=== PATIENT | male | born 1945 | race Caucasian/White ===

== ENCOUNTER 2020-01-20 17:39 | Emergency (ER) | payer MEDICARE, OTHER ==
[~2020-01-20] VITALS: Ht 182.9 cm; Wt 79.5 kg
[2020-01-20] MEDS ORDERED: normal saline 1000ML IV soln IVB ONE (18:00)
[2020-01-20 18:14] LABS: BASOPHILS # (AUTO) 0.1 X10'3 (0-0.2); BASOPHILS % (AUTO) 0.6 % (0-1); EOSINOPHILS # (AUTO) 0.3 X10'3 (0-0.9); EOSINOPHILS % (AUTO) 3.2 % (0-6); HEMATOCRIT 39.9 % (42.0-52.0); HEMOGLOBIN 13.4 g/dl (14.0-17.9); LYMPHOCYTES # (AUTO) 1.9 X10'3 (1.1-4.8); MEAN CORPUSCULAR HEMOGLOBIN 31.3 PG (27.0-31.0); MEAN CORPUSCULAR HGB CONC 33.5 g/dL (33.0-36.5); MEAN CORPUSCULAR VOLUME 93.3 FL (78-98); MEAN PLATELET VOLUME 9.6 FL (7.4-10.4); MONOCYTES # (AUTO) 1.1 X10'3 (0-0.9); MONOCYTES % (AUTO) 10.1 % (2-12); NEUTROPHILS # (AUTO) 7.3 X10'3 (1.8-7.7); NEUTROPHILS % (AUTO) 68.1 % (42-75); PLATELET COUNT 185 X10'3 (140-440); RED BLOOD COUNT 4.27 X10'6 (4.70-6.10); WHITE BLOOD COUNT 10.8 X10'3 (4.5-11.0)
[2020-01-20 18:50] LABS: ALANINE AMINOTRANSFERASE 23 U/L (12-78); ALBUMIN 3.9 G/DL (3.4-5.0); ALKALINE PHOSPHATASE 98 IU/L (46-116); ANION GAP 6 (8-16); ASPARTATE AMINO TRANSFERASE 24 U/L (10-37); BILIRUBIN,TOTAL 0.5 MG/DL (0.1-1.0); BLOOD UREA NITROGEN 25 MG/DL (7-18); BUN/CREATININE RATIO 20.2 (5.4-32.0); CALCIUM 9.5 MG/DL (8.5-10.1); CHLORIDE 106 MMOL/L (99-107); CREATININE 1.24 MG/DL (0.60-1.10); GLUCOSE 110 MG/DL (70-104); POTASSIUM 3.8 MMOL/L (3.5-5.1); SODIUM 142 MMOL/L (135-145); TOTAL CARBON DIOXIDE 29.9 MMOL/L (24-32); TOTAL PROTEIN 7.7 G/DL (6.4-8.2); eGFR 57 ML/MIN
[2020-01-20] MEDS ORDERED: HYDROcodone/acetaminophen 10/325mg tab PO ONE (19:00)
--- NOTE | 2020-01-20 19:26 | NUR ---
Interigated pace maker, talk to Michael from pacemaker [employer], reported pacemaker WNL no abnormal events, recomends follow up with Dr. Harris. Michael's phone number. [phone]
--- NOTE | 2020-01-20 19:53 | NUR ---
relieving RN for break, pt amb with steady gait, without assist from rm 6 to restroom, no c/o dizziness/lightheadedness
--- NOTE | 2020-01-20 19:55 | NUR ---
pt has ride home with friend
[2020-01-20 20:15] VITALS: BP 141/72
== END 2020-01-20 20:17 | disposition home or self-care (01) ==
LOC: ER 17:39
DX: R55 Syncope and collapse (principal); E78.00 Pure hypercholesterolemia, unspecified; I10 Essential (primary) hypertension; Z98.890 Other specified postprocedural states; Z86.73 Personal history of transient ischemic attack (TIA), and cerebral infarction without residual deficits; Z60.2 Problems related to living alone; Z88.5 Allergy status to narcotic agent; Z88.8 Allergy status to other drugs, medicaments and biological substances
CPT/HCPCS: 36415; 71045; 80053; 83880; 84484; 85025; 85610; 93005; 96360; 99285; J7030

== ENCOUNTER 2022-03-07 11:18 | Emergency (ER) | payer MEDICARE, OTHER ==
[~2022-03-07] VITALS: Ht 185.4 cm; Wt 64.1 kg
[2022-03-07] MEDS ORDERED: normal saline 1000ML IV soln IVB ONE (11:50)
[2022-03-07] MEDS ORDERED: ondansetron/PF 4mg/2ml inj IV ONE (11:50)
[2022-03-07] MEDS ORDERED: famotidine/PF 10 mg/ml inj IV ONE (12:10)
[2022-03-07] MEDS ORDERED: morphine 4 MG/ML inj SYRINge IV ONE (12:15)
[2022-03-07 12:18] LABS: CLARITY,URINE CLEAR (Clear); COLOR,URINE YELLOW (Yellow); GLUCOSE, URINE NEGATIVE (Neg); KETONES,URINE 15 mg/dl (Neg); LEUKOCYTE ESTERASE ,URINE NEGATIVE (Neg); NITRITES, URINE NEGATIVE (Neg); OCCULT BLOOD,URINE NEGATIVE (Neg); PROTEIN,URINE 100 mg/dl (Neg)
[2022-03-07] MEDS ORDERED: LORazepam 2 mg/ml vial IV ONE (12:20)
[2022-03-07 12:21] LABS: BASOPHILS % (AUTO) 0.5 % (0-1); EOSINOPHILS # (AUTO) 0.1 X10'3 (0-0.9); EOSINOPHILS % (AUTO) 2.1 % (0-6); HEMATOCRIT 43.5 % (42.0-52.0); HEMOGLOBIN 14.7 g/dl (14.0-17.9); LYMPHOCYTES # (AUTO) 0.7 X10'3 (1.1-4.8); LYMPHOCYTES % (AUTO) 13.7 % (21-51); MEAN CORPUSCULAR HEMOGLOBIN 31.1 PG (27.0-31.0); MEAN CORPUSCULAR HGB CONC 33.8 g/dL (33.0-36.5); MEAN CORPUSCULAR VOLUME 92.2 FL (78-98); MEAN PLATELET VOLUME 8.9 FL (7.4-10.4); MONOCYTES # (AUTO) 0.4 X10'3 (0-0.9); MONOCYTES % (AUTO) 8.9 % (2-12); NEUTROPHILS # (AUTO) 3.7 X10'3 (1.8-7.7); NEUTROPHILS % (AUTO) 74.8 % (42-75); PLATELET COUNT 217 X10'3 (140-440); RED BLOOD COUNT 4.71 X10'6 (4.70-6.10); RED CELL DISTRIBUTION WIDTH 14.7 % (11.5-14.5); WHITE BLOOD COUNT 4.9 X10'3 (4.5-11.0)
[2022-03-07 12:21] LABS: UA COLLECTION TYPE CLN CATCH MIDSTREAM
[2022-03-07 12:24] LABS: BACTERIA,URINE FEW /HPF (Neg); HYALINE CASTS 0-3 /LPF (NEGATIVE); MUCUS STRANDS FEW /LPF (Neg); RBC,URINE 0-2 /HPF (0-2); SQUAMOUS EPITHELIAL CELL,UR FEW /LPF (FEW); WBC,URINE 0-4 /HPF (0-4)
[2022-03-07 12:31] LABS: ALANINE AMINOTRANSFERASE 19 U/L (12-78); ALBUMIN 3.5 G/DL (3.4-5.0); ALKALINE PHOSPHATASE 84 IU/L (46-116); ANION GAP 9 (8-16); ASPARTATE AMINO TRANSFERASE 22 U/L (10-37); BLOOD UREA NITROGEN 11 MG/DL (7-18); BUN/CREATININE RATIO 10.2 (5.4-32.0); CALCIUM 9.2 MG/DL (8.5-10.1); CHLORIDE 104 MMOL/L (99-107); CREATININE 1.08 MG/DL (0.60-1.10); GLUCOSE 119 MG/DL (70-104); LIPASE < 50 U/L (73-393); POTASSIUM 4.4 MMOL/L (3.5-5.1); SODIUM 141 MMOL/L (135-145); TOTAL CARBON DIOXIDE 27.6 MMOL/L (24-32); TOTAL PROTEIN 7.1 G/DL (6.4-8.2); eGFR 66 ML/MIN
[2022-03-07] MEDS ORDERED: lactulose 20gm/30ml cup PO ONE (14:10)
[2022-03-07] MEDS ORDERED: methylnaltrexone br 12mg/0.6ml inj***SubQ only SQ ONE (14:10)
[2022-03-07 15:03] VITALS: BP 152/70
== END 2022-03-07 15:07 | disposition home or self-care (01) ==
LOC: ER 11:18
DX: K59.03 Drug induced constipation (principal); T40.605A Adverse effect of unspecified narcotics, initial encounter; N28.1 Cyst of kidney, acquired; R10.84 Generalized abdominal pain; R11.2 Nausea with vomiting, unspecified; R53.83 Other fatigue; E78.00 Pure hypercholesterolemia, unspecified; I10 Essential (primary) hypertension; F17.200 Nicotine dependence, unspecified, uncomplicated; Z87.442 Personal history of urinary calculi; Z86.73 Personal history of transient ischemic attack (TIA), and cerebral infarction without residual deficits; Z85.9 Personal history of malignant neoplasm, unspecified; Z98.890 Other specified postprocedural states; Z60.2 Problems related to living alone; Z88.5 Allergy status to narcotic agent; Z88.8 Allergy status to other drugs, medicaments and biological substances; Y92.89 Other specified places as the place of occurrence of the external cause
CPT/HCPCS: 36415; 71045; 74176; 80053; 81001; 83690; 85025; 96361; 96372; 96374; 96375; 99285; J2060; J2212; J2270; J2405; J3490; J7030

== ENCOUNTER 2022-03-15 18:22 | Inpatient (IN) | payer MEDICARE, OTHER ==
[~2022-03-15] VITALS: Ht 182.9 cm; Wt 62.7 kg
[2022-03-15 19:34] LABS: ALANINE AMINOTRANSFERASE 19 U/L (12-78); ALBUMIN 3.3 G/DL (3.4-5.0); ALBUMIN/GLOBULIN RATIO 0.8 (1.1-1.5); ALKALINE PHOSPHATASE 79 IU/L (46-116); ANION GAP 12 (8-16); ASPARTATE AMINO TRANSFERASE 19 U/L (10-37); BASOPHILS % (AUTO) 0.4 % (0-1); BILIRUBIN,TOTAL 1.2 MG/DL (0.1-1.0); BLOOD UREA NITROGEN 11 MG/DL (7-18); BUN/CREATININE RATIO 10.5 (5.4-32.0); CALCIUM 9.4 MG/DL (8.5-10.1); CHLORIDE 103 MMOL/L (99-107); CREATININE 1.05 MG/DL (0.60-1.10); EOSINOPHILS # (AUTO) 0.1 X10'3 (0-0.9); EOSINOPHILS % (AUTO) 1.5 % (0-6); GLUCOSE 121 MG/DL (70-104); HEMATOCRIT 40.8 % (42.0-52.0); HEMOGLOBIN 14.1 g/dl (14.0-17.9); LIPASE 67 U/L (73-393); LYMPHOCYTES # (AUTO) 0.7 X10'3 (1.1-4.8); MEAN CORPUSCULAR HEMOGLOBIN 31.4 PG (27.0-31.0); MEAN CORPUSCULAR HGB CONC 34.6 g/dL (33.0-36.5); MEAN CORPUSCULAR VOLUME 90.7 FL (78-98); MONOCYTES # (AUTO) 0.5 X10'3 (0-0.9); MONOCYTES % (AUTO) 10.1 % (2-12); NEUTROPHILS # (AUTO) 3.4 X10'3 (1.8-7.7); PLATELET COUNT 201 X10'3 (140-440); POTASSIUM 3.8 MMOL/L (3.5-5.1); RED BLOOD COUNT 4.49 X10'6 (4.70-6.10); RED CELL DISTRIBUTION WIDTH 14.4 % (11.5-14.5); SODIUM 140 MMOL/L (135-145); TOTAL CARBON DIOXIDE 24.6 MMOL/L (24-32); TOTAL PROTEIN 7.2 G/DL (6.4-8.2); WHITE BLOOD COUNT 4.6 X10'3 (4.5-11.0); eGFR 68 ML/MIN
[2022-03-15] MEDS ORDERED: morphine 4 MG/ML inj SYRINge IV ONE (19:35)
[2022-03-15] MEDS ORDERED: ondansetron/PF 4mg/2ml inj IV ONE (19:35)
[2022-03-15] MEDS ORDERED: HYDROmorphone 1 mg/ml syringe IV ONE (20:20)
[2022-03-15 21:20] LABS: CLARITY,URINE CLEAR (Clear); COLOR,URINE YELLOW (Yellow); GLUCOSE, URINE 100 mg/dl (Neg); KETONES,URINE 15 mg/dl (Neg); LEUKOCYTE ESTERASE ,URINE NEGATIVE (Neg); NITRITES, URINE NEGATIVE (Neg); OCCULT BLOOD,URINE TRACE-INTACT (Neg); PROTEIN,URINE TRACE mg/dl (Neg); UROBILINOGEN,URINE >=8.0 E.U/dL (0.2-1.0)
[2022-03-15 21:29] LABS: UA COLLECTION TYPE URINAL
[2022-03-15 21:33] LABS: BACTERIA,URINE FEW /HPF (Neg); SQUAMOUS EPITHELIAL CELL,UR NONE SEEN /LPF (FEW); WBC,URINE 0-4 /HPF (0-4)
[2022-03-15] MEDS ORDERED: ALBU8HFA PO (23:57)
[2022-03-16] MEDS ORDERED: HYDROmorphone/PF 0.2 MG/ML SYRINGE IV ONE (03:40)
[2022-03-16] MEDS ORDERED: MORP-92 PO (03:49)
[2022-03-16] MEDS ORDERED: SUCR1TAB PO (03:49)
[2022-03-16] MEDS ORDERED: HYDROmorphone 1 mg/ml syringe IV ONE (04:05)
[2022-03-16] MEDS ORDERED: piperacillin/tazo 3.375gm/50ml 50 ML IV STA (04:41)
[2022-03-16] MEDS ORDERED: normal saline 1000ml 1,000 ML IV ONE (04:45)
[2022-03-16] MEDS ORDERED: mag hydrox/Alum hydrox/simeth 30ml oral suspension PO PRN (04:55)
[2022-03-16] MEDS ORDERED: acetaminophen 325mg tablet PO PRN (04:55)
[2022-03-16] MEDS ORDERED: magnesium hydroxide 30ml (MOM) UD suspension PO PRN (04:55)
[2022-03-16] MEDS ORDERED: naloxone 0.4 mg/ml inj IV PRN (04:55)
[2022-03-16] MEDS ORDERED: sucralfate 1 gm tablet PO PRN (05:00)
[2022-03-16] MEDS: HYDROmorph/NS 0.2 mg/ml PCA 100 ML IV SCH ×6 (06:31→15:00)
--- NOTE | 2022-03-16 06:43 | NUR ---
Received report from ARTEMIO Camp. Awaiting patient arrival to room 4008.
[2022-03-16 07:15] VITALS: BP 131/67
--- NOTE | 2022-03-16 07:15 | NUR ---
Received patient to room 4008 via gurney accompanied by x1 staff. Patient A&O x4 c/o pain to abd and RLE. Patient has Dilaudid [employer] and educated on use. Patient oriented to room and call light. Call light placed within patient's reach. Bed low and locked. VSS.
[2022-03-16] MEDS: normal saline 1000ml 1,000 ML IV SCH ×3 (07:21→23:28)
[2022-03-16 07:45] LABS: D-DIMER 1.96 MG/L FEU (0-0.50)
[2022-03-16] MEDS: PCA WASTE DOCUMENTATION MC SCH ×2 (08:00→18:14)
[2022-03-16] MEDS: docusate sod 100mg capsule PO SCH ×2 (08:00→19:33)
[2022-03-16 10:00] VITALS: BP 158/48
--- NOTE | 2022-03-16 10:15 | NUR ---
Patient moved to room 4011B. x2 Belongings bag placed in closet.
--- NOTE | 2022-03-16 13:40 | NUR ---
Malnutrition Consult: Pt admit w/ LUQ pain hx esophageal CA receiving chemotherapy past 15 months last dosage 3 weeks ADMISSION [facility]IA[facility] s/p G-tube few days ago per EMR. Pt currently NPO s/p chest/thorax CTA per EMR. Pt seen by RD at bedside; pt reports wt loss since starting chemo w/ decreased appetite UBW 175-180 lb 15 months ago w/ most recent wt 138lb two days ago. Pending scaled wt this admit though this would be ~27% UBW loss 15 months severe. Pt reports issues chewing/swallowing s/p video swallow study at [facility] [place] few days ADMISSION LIAISON when he had G-tube placed there w/ plan to have EN be supplemental to PO since he still does eat but has had wt loss. Pt has mild temporal wasting evident w/ visible muscle/fat loss noted to bilateral arms/thighs; given visible muscle/fat wasting and reported wt loss hx pt meets severe malnutrition criteria; MD notified. Pt reports nutrition Rx of Jevity for EN though unsure regimen and has tried Ensures at home though unsure of wt gaining nutrition strategies. RD verbally educated pt on high kcal nutrition intake strategies for wt gaining and provided pt w/ Ensure coupons. [facility] reports [facility]; RD encouraged pt to f[facility]u w/ [facility] for home EN adjustment needs as needed. RD contacted [facility] [place] RD who reports pt on MM5/thin diet per COMMUNICATIONS ATTENDANT recs s/p G-tube 6/5 w/ nutrition Rx Jevity 1.2 300ml bolus QID to supplement ~2 meals/day pt reports eating at home. RD notified MD of COMMUNICATIONS ATTENDANT BSS recs this admit given NPO status. Will monitor for PO diet advancement and EN initiation per physician discretion this admit. Rec: 1. advance diet per COMMUNICATIONS ATTENDANT/MD recs to regular 2. Ensure Enlive TIDWM once PO diet advances to at least full liquids 3. IF pt supplemental GTF to restart; monitor for PO trends and EN adjustment needs; see above note for prior home Rx 4. MVI supplementation once diet advances per physician discretion 5. routine bowel care 6. scaled wt this admit; subsequent weekly wts Addendum: 03/16/22 at [address] Amended: Links added.
[2022-03-16] MEDS ORDERED: ONDA4TAB12 PO (15:20)
[2022-03-16] MEDS ORDERED: DOCU-338 PO (15:20)
[2022-03-16] MEDS: piperacillin/tazo 3.375gm/50ml 50 ML IV SCH (15:28)
[2022-03-16] MEDS ORDERED: morphine ER 15mg tablet PO PRN (16:05)
[2022-03-16] MEDS ORDERED: ondansetron 4mg rapidly disintigrating tab PO PRN (16:05)
[2022-03-16] MEDS: sucralfate 1 gm tablet PO SCH ×2 (17:00→19:32)
[2022-03-16] MEDS ORDERED: HYDROmorphone 2mg tablet PO PRN (17:00)
[2022-03-16 18:00] VITALS: BP 176/80
--- NOTE | 2022-03-16 18:12 | NUR ---
Diluadid cadd was programmed to be 50ml when volume was 100ml. Cadd pump stated patient received 1.6mg and residual remaning was 42ml. 86ml wasted witnessed by second RN, Adela.
--- NOTE | 2022-03-16 18:29 | NUR ---
Problems reprioritized. Patient report given, questions answered & plan of care reviewed with ARTEMIO Altman.
[2022-03-16] MEDS: docusate sod 250mg capsule PO SCH (19:32)
--- NOTE | 2022-03-16 21:50 | NUR ---
Called Dr. Copeland for IV pain medicine. Orders received.
--- NOTE | 2022-03-16 21:56 | NUR ---
Per patient, he can take Morphine, may only cause mild itching, which is not a consistent reaction.
[2022-03-16 22:00] VITALS: BP 158/66
[2022-03-16] MEDS: morphine 2 MG/ML inj. syringe IV PRN (22:18)
[2022-03-17] MEDS: piperacillin/tazo 3.375gm/50ml 50 ML IV SCH ×2 (00:53→07:16)
[2022-03-17] MEDS: ondansetron/PF 4mg/2ml inj IV PRN ×2 (05:17→11:53)
[2022-03-17] MEDS: morphine 2 MG/ML inj. syringe IV PRN ×2 (05:18→10:35)
[2022-03-17 06:00] VITALS: BP 163/76
--- NOTE | 2022-03-17 06:55 | NUR ---
Patient in room ORTHO 4011. I have received report from mohit gleason and had the opportunity to ask questions and assume patient care.
[2022-03-17 07:00] LABS: BASOPHILS % (AUTO) 0.8 % (0-1); EOSINOPHILS # (AUTO) 0.2 X10'3 (0-0.9); EOSINOPHILS % (AUTO) 4.5 % (0-6); HEMATOCRIT 37.1 % (42.0-52.0); HEMOGLOBIN 12.7 g/dl (14.0-17.9); LYMPHOCYTES # (AUTO) 0.5 X10'3 (1.1-4.8); LYMPHOCYTES % (AUTO) 12.9 % (21-51); MEAN CORPUSCULAR HEMOGLOBIN 31.3 PG (27.0-31.0); MEAN CORPUSCULAR HGB CONC 34.3 g/dL (33.0-36.5); MEAN CORPUSCULAR VOLUME 91.2 FL (78-98); MEAN PLATELET VOLUME 9.2 FL (7.4-10.4); MONOCYTES # (AUTO) 0.4 X10'3 (0-0.9); MONOCYTES % (AUTO) 9.3 % (2-12); NEUTROPHILS % (AUTO) 72.5 % (42-75); PLATELET COUNT 184 X10'3 (140-440); RED BLOOD COUNT 4.07 X10'6 (4.70-6.10); RED CELL DISTRIBUTION WIDTH 14.4 % (11.5-14.5); WHITE BLOOD COUNT 4.2 X10'3 (4.5-11.0)
[2022-03-17] MEDS: PCA WASTE DOCUMENTATION MC SCH (07:08)
[2022-03-17] MEDS: sucralfate 1 gm tablet PO SCH (07:09)
[2022-03-17] MEDS: docusate sod 250mg capsule PO SCH (07:09)
[2022-03-17] MEDS: docusate sod 100mg capsule PO SCH (07:09)
[2022-03-17] MEDS: normal saline 1000ml 1,000 ML IV SCH (07:17)
[2022-03-17 07:24] LABS: ALANINE AMINOTRANSFERASE 19 U/L (12-78); ALBUMIN 2.9 G/DL (3.4-5.0); ALBUMIN/GLOBULIN RATIO 0.9 (1.1-1.5); ALKALINE PHOSPHATASE 68 IU/L (46-116); ANION GAP 10 (8-16); ASPARTATE AMINO TRANSFERASE 26 U/L (10-37); BILIRUBIN,TOTAL 1.1 MG/DL (0.1-1.0); BLOOD UREA NITROGEN 7 MG/DL (7-18); BUN/CREATININE RATIO 8.4 (5.4-32.0); CALCIUM 8.8 MG/DL (8.5-10.1); CHLORIDE 105 MMOL/L (99-107); CREATININE 0.83 MG/DL (0.60-1.10); GLUCOSE 97 MG/DL (70-104); POTASSIUM 3.2 MMOL/L (3.5-5.1); SODIUM 140 MMOL/L (135-145); TOTAL PROTEIN 6.3 G/DL (6.4-8.2); eGFR 90 ML/MIN
[2022-03-17 10:00] VITALS: BP 142/72
[2022-03-17] MEDS ORDERED: HYDR-3965 PO (11:19)
--- NOTE | 2022-03-17 15:19 | NUR ---
PT STATES THAT HE IS GOING TO APPEAL HIS DISCHARGE THROUGH MEDICARE. WILL NOTIFY AND OLY
--- NOTE | 2022-03-17 15:27 | NUR ---
PAGED DR PETTIT RE: PAGER ID: [phone] MESSAGE: FILOMENA PIKE. PT APPEALING HIS DC WITH MEDICARE. SO HE WILL NOT BE GOING TODDAY. O/N KATHRYN [id number]
--- NOTE | 2022-03-17 16:11 | NUR ---
PT STATES HE NO LONGER WANTS TO APPEAL DC. HE STATES THAT THE [facility] IS WAITING FOR HIM. HE WILL GET A RIDE HOME FROM HERE AND AN AMBULANCE WILL PICK HIM UP FOR TRANSPORT. PAGED DR PETTIT RE: promotional table spacer PAGER ID: [phone] MESSAGE: FILOMENA PIKE. PT GOING TO DC HOME. SAYS HE WILL FOLLOW UP AT [facility]. O/N KATHRYN [id number]
--- NOTE | 2022-03-17 16:50 | NUR ---
PT DISCHARGED IN STABLE CONDITION IN PRIVATE VEHICLE WITH FRIEND. 2 IVs DC CANULA INTACT. PT STATES THAT HE IS GOING TO GO HOME AND AN AMBULANCE IS PICKING HIM UP FROM HIS HOME AND TRANSPORTING HIM TO [place]. ALL BELONGINGS IN HAND. INITIALLY PT STATED THAT HE WAS GOING TO APPEAL HIS DISCHARGE THROUGH MEDICARE. I NOTIFIED . PT THEN LATER STATED THAT HE NEEDED TO BE DISCHARGED IMMEDIATELY HE HAD A RIDE COMING TO TAKE HIM HOME. AGAIN, WAS NOTIFIED THAT PT HAD ULTIMATELY MADE THE DECISION TO DC HOME. Addendum: 03/17/22 at 1740 by Renuka Ortiz RN Amended: Links added.
== END 2022-03-17 16:50 | disposition home health service (06) | DRG 392 ==
LOC: ER 18:22 → ED HOLD 03-16 04:53 → ORTHO 4S 03-16 07:21
PROVIDERS: ADMIT Internal Medicine; ATTEND Internal Medicine
PROC: B32T1ZZ Computerized Tomography (CT Scan) of Left Pulmonary Artery using Low Osmolar Contrast (ICD-10-PCS; principal; 2022-03-15)
PROC: B3201ZZ Computerized Tomography (CT Scan) of Thoracic Aorta using Low Osmolar Contrast (ICD-10-PCS; 2022-03-15)
PROC: B32S1ZZ Computerized Tomography (CT Scan) of Right Pulmonary Artery using Low Osmolar Contrast (ICD-10-PCS; 2022-03-15)
PROC: B4201ZZ Computerized Tomography (CT Scan) of Abdominal Aorta using Low Osmolar Contrast (ICD-10-PCS; 2022-03-15)
PROC: B4241ZZ Computerized Tomography (CT Scan) of Superior Mesenteric Artery using Low Osmolar Contrast (ICD-10-PCS; 2022-03-15)
DX: R10.12 Left upper quadrant pain (principal); C15.9 Malignant neoplasm of esophagus, unspecified; Z68.1 Body mass index [BMI] 19.9 or less, adult; E44.1 Mild protein-calorie malnutrition; I25.10 Atherosclerotic heart disease of native coronary artery without angina pectoris; I10 Essential (primary) hypertension; N28.1 Cyst of kidney, acquired; E78.00 Pure hypercholesterolemia, unspecified; Z60.2 Problems related to living alone; E86.0 Dehydration; G89.29 Other chronic pain; Z66 Do not resuscitate; Z86.73 Personal history of transient ischemic attack (TIA), and cerebral infarction without residual deficits; Z87.442 Personal history of urinary calculi; Z87.891 Personal history of nicotine dependence; Z95.1 Presence of aortocoronary bypass graft; Z88.5 Allergy status to narcotic agent; Z88.8 Allergy status to other drugs, medicaments and biological substances; Z74.01 Bed confinement status; Z79.899 Other long term (current) drug therapy
CPT/HCPCS: 36415; 71100; 71275; 74174; 80053; 81001; 83605; 83690; 84145; 85025; 85379; 87040; 87081; 92508; 92616; 93005; 99285; G0378; J1170; J2270; J2405; J2543; J3490; J7030

== ENCOUNTER 2022-06-14 11:08 | Emergency (ER) | payer MEDICARE, OTHER ==
[~2022-06-14] VITALS: Ht 182.9 cm; Wt 55.5 kg
[~2022-06-14 11:08] MED LIST: DOCU-338 PO; MORP-92 PO; ONDA4TAB12 PO; SUCR1TAB PO
--- NOTE | 2022-06-14 16:36 | NUR ---
PT HAS H/O ESOPHAGEAL CANCER, HAS FENTANYL PATCH AND TAKES MORPHINE ELIXIR, PAIN MED NOT RELIEVING PAIN TO RECENT HIP FX AND SURGICAL REPAIR, PT IS REQUESTING TO GO BACK TO [facility] FOR [facility]IN MANAGEMENT, PLAN TO RESTART CHEMO IN ONE WEEK
[2022-06-14] MEDS ORDERED: gabapentin 300mg capsule PO ONE (17:30)
[2022-06-14 18:16] LABS: BASOPHILS % (AUTO) 0.4 % (0-1); EOSINOPHILS # (AUTO) 0.1 X10'3 (0-0.9); EOSINOPHILS % (AUTO) 2.3 % (0-6); HEMATOCRIT 37.1 % (42.0-52.0); HEMOGLOBIN 12.4 g/dl (14.0-17.9); LYMPHOCYTES # (AUTO) 0.4 X10'3 (1.1-4.8); LYMPHOCYTES % (AUTO) 10.9 % (21-51); MEAN CORPUSCULAR HEMOGLOBIN 30.7 PG (27.0-31.0); MEAN CORPUSCULAR HGB CONC 33.5 g/dL (33.0-36.5); MEAN CORPUSCULAR VOLUME 91.5 FL (78-98); MEAN PLATELET VOLUME 8.8 FL (7.4-10.4); MONOCYTES # (AUTO) 0.5 X10'3 (0-0.9); MONOCYTES % (AUTO) 13.9 % (2-12); NEUTROPHILS # (AUTO) 2.8 X10'3 (1.8-7.7); NEUTROPHILS % (AUTO) 72.5 % (42-75); PLATELET COUNT 233 X10'3 (140-440); RED BLOOD COUNT 4.06 X10'6 (4.70-6.10); RED CELL DISTRIBUTION WIDTH 15.2 % (11.5-14.5); WHITE BLOOD COUNT 3.9 X10'3 (4.5-11.0)
[2022-06-14 18:18] LABS: ALANINE AMINOTRANSFERASE 23 U/L (12-78); ALBUMIN 3.2 G/DL (3.4-5.0); ALBUMIN/GLOBULIN RATIO 0.8 (1.1-1.5); ALKALINE PHOSPHATASE 122 IU/L (46-116); ANION GAP 7 (8-16); ASPARTATE AMINO TRANSFERASE 18 U/L (10-37); BILIRUBIN,TOTAL 0.4 MG/DL (0.1-1.0); BLOOD UREA NITROGEN 23 MG/DL (7-18); BUN/CREATININE RATIO 29.5 (5.4-32.0); C-REACTIVE PROTEIN 0.37 MG/DL (0.0-0.5); CALCIUM 9.4 MG/DL (8.5-10.1); CHLORIDE 102 MMOL/L (99-107); CREATININE 0.78 MG/DL (0.60-1.10); GLUCOSE 103 MG/DL (70-104); POTASSIUM 4.1 MMOL/L (3.5-5.1); SODIUM 141 MMOL/L (135-145); TOTAL CARBON DIOXIDE 32.5 MMOL/L (24-32); eGFR > 90 ML/MIN
--- NOTE | 2022-06-14 18:52 | NUR ---
[facility] [phone] IRMA
[2022-06-14] MEDS: morphine 2 MG/ML inj. syringe IV PRN ×5 (19:22→20:47)
[2022-06-14 20:48] VITALS: BP 129/62
== END 2022-06-14 21:30 | disposition home or self-care (01) ==
LOC: ER 11:08
DX: G89.29 Other chronic pain (principal); M25.552 Pain in left hip; D64.9 Anemia, unspecified; Z85.818 Personal history of malignant neoplasm of other sites of lip, oral cavity, and pharynx; Z87.81 Personal history of (healed) traumatic fracture; Z88.8 Allergy status to other drugs, medicaments and biological substances; Z79.899 Other long term (current) drug therapy
CPT/HCPCS: 36415; 72131; 72192; 80053; 85025; 85651; 86140; 96374; 96376; 99285; J2270